=== PATIENT | male | born 1945 | race Caucasian/White ===

== ENCOUNTER 2017-12-20 07:38 | Emergency (ER) | payer MEDICARE, OTHER ==
[~2017-12-20] VITALS: Ht 177.8 cm; Wt 81.7 kg
[~2017-12-20 07:38] MED LIST: ALLO100 PO; AMLO10 PO; AMLO5 PO; ASPI325 PO; Aspir 8181 MG PO; Bactrim Ds Tab1 EACH PO; CHOL10002; CLON.2 PO; COLCHICINE0.6 MG PO; COLCRYS0.6 MG PO; FURO40 PO; LISI20 PO; LISI5 PO; METO50 PO; METPRE4DP PO; Mobic15 MG PO; Multivitamin1 EAC1 PO; NITR.4SL SL; Naprosyn500 MG PO; Norco 5-325 Ta1 EACH PO; Norco 7.5-3251 EACH PO; Omeprazole20 M1 PO; PANT20 PO; PRED20 PO; Percocet 5-3251 EACH PO; SIMV40 PO; SPIR25 PO; TERA5 PO; Terazosin HCl10 MG; XARELTO20 MG PO; Zocor20 MG PO
[2017-12-20 08:15] LABS: BASOPHILS ABSOLUTE AUTO 0.06 K/mm3 (0.00-0.23); BASOPHILS PERCENT AUTO 1 % (0-2); EOSINOPHILS ABSOLUTE AUTO 0.27 K/mm3 (0.00-0.68); EOSINOPHILS PERCENT AUTO 2 % (0-6); Hemoglobin 16.1 g/dL (13.5-17.5); IMMATURE GRAN ABSOLUTE AUTO 0.05 K/mm3 (0.00-0.10); IMMATURE GRAN PERCENT AUTO 0 % (0-1); LYMPHOCYTES ABSOLUTE AUTO 2.34 K/mm3 (0.84-5.20); LYMPHOCYTES PERCENT AUTO 21 % (21-46); MONOCYTES ABSOLUTE AUTO 1.29 K/mm3 (0.16-1.47); MONOCYTES PERCENT AUTO 11 % (4-13); Mean Corpuscular HGB 31.3 pg (26.0-34.0); Mean Corpuscular HGB Conc 32.9 g/dL (31.5-36.5); Mean Corpuscular Volume 95 fL (80-100); Mean Platelet Volume 9.9 fL (9.1-12.4); NEUTROPHILS ABSOLUTE AUTO 7.42 K/mm3 (1.96-9.15); NEUTROPHILS PERCENT AUTO 65 % (41-73); Platelet Count 293 K/mm3 (150-400); RDW Coefficient Variation 14.1 % (11.7-14.2); RDW Standard Deviation 49.4 fL (35.1-46.3); Red Blood Cell Count 5.15 M/mm3 (4.30-5.90); White Blood Cell Count 11.43 K/mm3 (4.00-11.30)
[2017-12-20 08:27] LABS: International Normalized Ratio 1.32; Prothrombin Time Results 13.9 Sec (9.7-11.5)
[2017-12-20 08:34] LABS: Anion Gap 6 mmol/L (6-16); Blood Urea Nitrogen 14 mg/dL (8-24); Bun/Creatinine Ratio 12.4 (12.0-20.0); CO2, Blood 30 mmol/L (21-32); Calcium, Blood 8.6 mg/dL (8.5-10.1); Chloride, Blood 106 mmol/L (98-108); Creatinine, Blood 1.13 mg/dL (0.60-1.20); Glomerular Filtration Rate >60 (60-); Glucose, Blood 103 mg/dL (70-99); Potassium, Blood 4.2 mmol/L (3.5-5.5); Sodium, Blood 142 mmol/L (136-145); Troponin I <0.015 ng/mL (0.000-0.040)
[2017-12-20] MEDS ORDERED: Lasix80 MG PO (11:39)
[2018-06-15] MEDS ORDERED: FURO40 PO (09:11)
[2018-06-15] MEDS ORDERED: WARF5 PO (09:14)
[2018-06-15] MEDS ORDERED: DONE5 PO (09:15)
[2018-06-15] MEDS ORDERED: CHOL10002 PO (09:17)
[2018-06-24] MEDS ORDERED: HYDR1TAB94 PO (14:03)
== END 2017-12-20 11:47 | disposition home or self-care (01) ==
LOC: ER 07:38
PROVIDERS: Emergency Medicine
DX: I11.0 Hypertensive heart disease with heart failure (principal); I50.9 Heart failure, unspecified; R07.89 Other chest pain; Z79.899 Other long term (current) drug therapy; Z79.82 Long term (current) use of aspirin; Z87.891 Personal history of nicotine dependence
CPT/HCPCS: 36415; 71045; 80048; 81000; 83880; 84484; 85025; 85610; 93005; 93010; 96374; 99284; J1940

== ENCOUNTER 2017-12-30 06:20 | Day surgery (SDC) | payer MEDICARE, OTHER ==
[~2017-12-30 06:20] MED LIST changes: +Lasix80 MG PO
[2018-06-15] MEDS ORDERED: FURO40 PO (09:11)
[2018-06-15] MEDS ORDERED: WARF5 PO (09:14)
[2018-06-15] MEDS ORDERED: DONE5 PO (09:15)
[2018-06-15] MEDS ORDERED: CHOL10002 PO (09:17)
[2018-06-24] MEDS ORDERED: HYDR1TAB94 PO (14:03)
== END 2017-12-30 23:14 | disposition home or self-care (01) ==
LOC: ORSCSDS 06:20 → ORSCMMR 07:26
PROVIDERS: Urology
PROC: 0VB60ZZ Excision of Right Tunica Vaginalis, Open Approach (ICD-10-PCS; principal; 2017-12-30 08:00)
PROC: 0VB70ZZ Excision of Left Tunica Vaginalis, Open Approach (ICD-10-PCS; principal; 2017-12-30 08:00)
DX: N43.3 Hydrocele, unspecified (principal); I10 Essential (primary) hypertension; E78.5 Hyperlipidemia, unspecified; Z87.891 Personal history of nicotine dependence; Z79.01 Long term (current) use of anticoagulants; Z79.82 Long term (current) use of aspirin; Z79.899 Other long term (current) drug therapy
CPT/HCPCS: J0690; J2250; J2370; J2405; J3010; J7120

== ENCOUNTER 2018-01-04 15:49 | Emergency (ER) | payer MEDICARE, OTHER ==
[~2018-01-04] VITALS: Ht 177.8 cm; Wt 90.7 kg
[2018-01-04 16:27] LABS: BASOPHILS ABSOLUTE AUTO 0.04 K/mm3 (0.00-0.23); BASOPHILS PERCENT AUTO 0 % (0-2); EOSINOPHILS ABSOLUTE AUTO 0.19 K/mm3 (0.00-0.68); EOSINOPHILS PERCENT AUTO 2 % (0-6); Hematocrit 41.7 % (37.0-53.0); Hemoglobin 13.8 g/dL (13.5-17.5); IMMATURE GRAN ABSOLUTE AUTO 0.06 K/mm3 (0.00-0.10); IMMATURE GRAN PERCENT AUTO 1 % (0-1); LYMPHOCYTES ABSOLUTE AUTO 1.59 K/mm3 (0.84-5.20); LYMPHOCYTES PERCENT AUTO 14 % (21-46); MONOCYTES ABSOLUTE AUTO 1.29 K/mm3 (0.16-1.47); MONOCYTES PERCENT AUTO 11 % (4-13); Mean Corpuscular HGB 31.2 pg (26.0-34.0); Mean Corpuscular HGB Conc 33.1 g/dL (31.5-36.5); Mean Corpuscular Volume 94 fL (80-100); Mean Platelet Volume 9.6 fL (9.1-12.4); NEUTROPHILS ABSOLUTE AUTO 8.19 K/mm3 (1.96-9.15); NEUTROPHILS PERCENT AUTO 72 % (41-73); Platelet Count 290 K/mm3 (150-400); RDW Coefficient Variation 13.5 % (11.7-14.2); RDW Standard Deviation 47.8 fL (35.1-46.3); Red Blood Cell Count 4.42 M/mm3 (4.30-5.90); White Blood Cell Count 11.36 K/mm3 (4.00-11.30)
[2018-01-04 16:46] LABS: Troponin I 0.022 ng/mL (0.000-0.040)
[2018-01-04 16:47] LABS: Alanine Aminotransfer (ALT/SGP 20 U/L (12-78); Albumin/Globulin Ratio 0.8 (0.8-1.8); Alk Phos 108 U/L (50-136); Anion Gap 8 mmol/L (6-16); Aspartate Aminotrans (AST/SGOT 18 U/L (12-37); Bilirubin, Total 0.7 mg/dL (0.1-1.0); Blood Urea Nitrogen 10 mg/dL (8-24); CO2, Blood 28 mmol/L (21-32); Calcium, Blood 8.5 mg/dL (8.5-10.1); Chloride, Blood 105 mmol/L (98-108); Globulin, Blood 3.7 g/dL (2.2-4.0); Glomerular Filtration Rate >60 (60-); Glucose, Blood 102 mg/dL (70-99); Potassium, Blood 3.5 mmol/L (3.5-5.5); Sodium, Blood 141 mmol/L (136-145); Total Protein, Blood 6.7 g/dL (6.4-8.2)
[2018-01-04] MEDS ORDERED: LEVFLO500 PO (21:43)
[2018-06-15] MEDS ORDERED: FURO40 PO (09:11)
[2018-06-15] MEDS ORDERED: WARF5 PO (09:14)
[2018-06-15] MEDS ORDERED: DONE5 PO (09:15)
[2018-06-15] MEDS ORDERED: CHOL10002 PO (09:17)
[2018-06-24] MEDS ORDERED: HYDR1TAB94 PO (14:03)
== END 2018-01-04 21:55 | disposition home or self-care (01) ==
LOC: ER 15:49
PROVIDERS: Internal Medicine
DX: J18.9 Pneumonia, unspecified organism (principal); Z79.899 Other long term (current) drug therapy; Z79.82 Long term (current) use of aspirin; I10 Essential (primary) hypertension; I48.91 Unspecified atrial fibrillation; Z87.891 Personal history of nicotine dependence
CPT/HCPCS: 36415; 71046; 71260; 76870; 80053; 83880; 84484; 85025; 93005; 93010; 96374; 96375; 99284; J1170; J1940; J2405; Q9967

== ENCOUNTER 2019-04-15 12:21 | Emergency (ER) | payer MEDICARE, OTHER ==
[~2019-04-15] VITALS: Ht 177.8 cm; Wt 99.8 kg
[~2019-04-15 12:21] MED LIST changes: +CHOL10002 PO; +DONE5 PO; +HYDR1TAB94 PO; +LEVFLO500 PO; +WARF5 PO
[2019-04-15 12:58] LABS: Hematocrit 53.6 % (37.0-53.0); Hemoglobin 18.2 g/dL (13.5-17.5); Mean Corpuscular Volume 94 fL (80-100); Mean Platelet Volume 11.4 fL (9.1-12.4); Platelet Count 219 K/mm3 (150-400); RDW Coefficient Variation 15.5 % (11.7-14.2); RDW Standard Deviation 53.8 fL (35.1-46.3); Red Blood Cell Count 5.68 M/mm3 (4.30-5.90); White Blood Cell Count 25.29 K/mm3 (4.00-11.30)
[2019-04-15 13:13] LABS: Albumin, Blood 3.1 g/dL (3.4-5.0); Albumin/Globulin Ratio 0.8 (0.8-1.8); Bilirubin, Total 1.8 mg/dL (0.1-1.0); Bun/Creatinine Ratio 25.7 (12.0-20.0); Calcium, Blood 8.8 mg/dL (8.5-10.1); Creatinine, Blood 1.4 mg/dL (0.60-1.20); Globulin, Blood 3.9 g/dL (2.2-4.0); Potassium, Blood 3.7 mmol/L (3.5-5.5)
[2019-04-15 13:29] LABS: BAND PERCENT MAN 20 % (0-8); BASOPHILS PERCENT MAN 0 % (0-2); EOSINOPHILS PERCENT MAN 0 % (0-6); MONOCYTES ABSOLUTE MAN 2.52 K/mm3 (0.16-1.47); MONOCYTES PERCENT MAN 10 % (4-13); NEUTROPHILS ABSOLUTE MAN 22.76 K/mm3 (1.96-9.15); SEG NEUTROPHILS PERCENT MAN 70 % (41-73); TOTAL CELLS COUNTED 100
[2019-04-15] MEDS ORDERED: DONE10 PO (14:36)
[2019-04-15 15:49] LABS: Source, Urine Clean Catch
[2019-04-15 15:55] LABS: Blood, Urine 4+ (Neg); Glucose Qualitative, Urine Neg (Neg); Ketones, Urine 1+ (Neg); Leukocyte Esterase, Urine 1+ (Neg); Nitrite, Urine Neg (Neg); Protein, Urine 3+ (Neg); Urobilinogen, Urine NORM (Normal)
[2019-04-15 16:09] LABS: Bilirubin, Urine 1+ (Neg); Color, Urine Amber (P-Yellow)
[2019-04-15 16:10] LABS: Appearance, Urine Hazy (Clear)
[2019-04-15 16:12] LABS: Red Blood Cells, Urine 0-2 /hpf (0-2); Squamous Epithelial Cells Few /hpf (Few)
[2019-04-15 16:13] LABS: Bacteria Few /hpf
== END 2019-04-15 17:48 | disposition short-term general hospital (02) ==
LOC: ER 12:21
PROVIDERS: Internal Medicine
DX: K55.069 Acute infarction of intestine, part and extent unspecified (principal); N17.9 Acute kidney failure, unspecified; K55.9 Vascular disorder of intestine, unspecified; B99.8 Other infectious disease; Z79.899 Other long term (current) drug therapy; Z79.82 Long term (current) use of aspirin; Z79.01 Long term (current) use of anticoagulants; I10 Essential (primary) hypertension; I48.91 Unspecified atrial fibrillation; F03.90 Unspecified dementia, unspecified severity, without behavioral disturbance, psychotic disturbance, mood disturbance, and anxiety; Z87.891 Personal history of nicotine dependence
CPT/HCPCS: 36415; 74177; 80053; 81001; 83605; 83690; 85025; 87040; 87086; 93005; 93010; 96361; 96361-59; 96374-59; 99285-25; J2405; J7120; Q9967